=== PATIENT | male | born 2005 | race Caucasian/White ===

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

== ENCOUNTER 2025-08-23 14:40 | Outpatient (RCR) | payer MEDICAID ==
[~2025-08-23 14:40] MED LIST changes: +VENTAER
== END 2025-09-14 ==
LOC: M PT 14:40
PROVIDERS: ATTEND Student in an Organized Health Care Education/Training Program
DX: M76.31 Iliotibial band syndrome, right leg (principal); M70.61 Trochanteric bursitis, right hip